=== PATIENT | male | born 1945 | race Two or more races ===

== ENCOUNTER 2020-10-22 00:10 | Observation (INO) | payer OTHER, MEDICARE ==
[~2020-10-22] VITALS: Ht 177.8 cm; Wt 84.0 kg
[2020-10-22] MEDS ORDERED: SODIUM CHLORIDE FLUSH 10ML SYR IVF ONE (00:30)
[2020-10-22 00:44] LABS: BASOPHILS % (AUTO) 1 % (0-1); EOSINOPHILS % (AUTO) 3 % (1-7); LYMPHOCYTES % (AUTO) 15 % (22-44); MEAN CORPUSCULAR HEMOGLOBIN 32.1 pg (27.5-34.5); MEAN CORPUSCULAR HGB CONC 33.4 g/dL (33.2-36.2); MEAN PLATELET VOLUME 8.4 fL (7.4-10.4); MONOCYTES % (AUTO) 12 % (2-9); NEUTROPHILS % (AUTO) 70 % (42-75); PLATELET COUNT 154 x10^3/uL (130-400); RED BLOOD COUNT 3.98 x10^6/uL (4.38-5.82); RED CELL DISTRIBUTION WIDTH 14.8 % (9.4-14.8)
[2020-10-22 00:45] LABS: MD NO
[2020-10-22] MEDS ORDERED: CHOL5POW PO (00:50)
[2020-10-22] MEDS ORDERED: TAMS-11 PO (00:50)
[2020-10-22] MEDS ORDERED: ATOR-2 PO (00:50)
[2020-10-22] MEDS ORDERED: LOSA50TA14 PO (00:50)
[2020-10-22] MEDS ORDERED: METO-93 PO (00:50)
[2020-10-22] MEDS ORDERED: ASPI-963 PO (00:50)
[2020-10-22 00:53] LABS: ALANINE AMINOTRANSFERASE 59 U/L (12-78); ANION GAP 8 mmol/L (5-15); CALCIUM 8.2 mg/dL (8.5-10.1); CHLORIDE 113 mmol/L (98-107); CREATININE 1.18 mg/dL (0.7-1.3)
[2020-10-22 00:58] LABS: ALKALINE PHOSPHATASE 188 U/L (45-117); BILIRUBIN,TOTAL 1.5 mg/dL (0.2-1.0); TOTAL PROTEIN 6.3 g/dL (6.4-8.2); TROPONIN I < 0.015 ng/mL (0.000-0.045)
[2020-10-22] MEDS ORDERED: GUAIFENESIN/DM 200-20MG, 10ML UDC PO PRN (01:30)
[2020-10-22] MEDS: PLEASE ENTER HEIGHT AND WEIGHT MC SCH ×2 (01:30→08:46)
[2020-10-22] MEDS ORDERED: ACETAMINOPHEN 325 MG TABLET PO PRN (01:30)
--- NOTE | 2020-10-22 01:41 | NUR ---
REPORT CALLED TO [facility]OR[facility] PT READY FOR TRANSPORT TO ROOM [id number]
[2020-10-22 01:58] VITALS: BP 159/81
[2020-10-22 08:01] VITALS: BP 154/80
[2020-10-22] MEDS ORDERED: TAMSULOSIN 0.4 MG CAP.ER.24H PO SCH (09:00)
[2020-10-22] MEDS ORDERED: ASPIRIN 81 MG TABLET EC PO SCH (09:00)
[2020-10-22] MEDS ORDERED: CHOLESTYRAMINE LIGHT 4GM PACKET PO SCH (09:00)
[2020-10-22] MEDS ORDERED: LOSARTAN 50MG TABLET PO SCH (09:00)
[2020-10-22] MEDS ORDERED: METOPROLOL SUCCINATE 50 MG TAB.ER.24H PO SCH (09:00)
[2020-10-22] MEDS ORDERED: LIDOCAINE 1%, 10ML ONE (09:15)
[2020-10-22 12:38] VITALS: BP 156/89
[2020-10-22] MEDS ORDERED: ATORVASTATIN 40 MG TABLET PO SCH (21:00)
== END 2020-10-22 17:50 | disposition home or self-care (01) ==
LOC: ED 01:30 → OBSVTOIN 01:46 → EDIP 01:46 → INTOOBSV 01:46 → 4NE 01:48 → 4NW 12:15
PROVIDERS: ADMIT Family Medicine; ATTEND Internal Medicine
DX: J90 Pleural effusion, not elsewhere classified (principal); J96.01 Acute respiratory failure with hypoxia; I25.10 Atherosclerotic heart disease of native coronary artery without angina pectoris; I10 Essential (primary) hypertension; E78.5 Hyperlipidemia, unspecified; N40.0 Benign prostatic hyperplasia without lower urinary tract symptoms; R74.01 Elevation of levels of liver transaminase levels; R74.8 Abnormal levels of other serum enzymes; Z79.82 Long term (current) use of aspirin; Z79.899 Other long term (current) drug therapy; Z85.038 Personal history of other malignant neoplasm of large intestine
CPT/HCPCS: 32555; 36415; 71045; 71046; 80053; 83880; 84484; 85025; 88112; 88305; 93005; G0378; J3490; 99285